=== PATIENT | male | born 1945 | race Caucasian/White ===

== ENCOUNTER 2017-03-15 23:44 | Emergency (ER) | payer MEDICARE, OTHER ==
[~2017-03-15] VITALS: Ht 165.1 cm; Wt 104.5 kg
[~2017-03-15 23:44] MED LIST: ASPI81TA2 PO; AZIL1TAB2 PO; CLOP75TA14 PO; NAPR220C11 PO; NEBI10TA2 PO; NITR0.4T SL; OMEP20TA86 PO; PRAM0.252 PO; PRAS10TA5 PO; PRV40T PO; ZES5 PO
--- NOTE | 2017-03-15 23:46 | ED.REPORT ---
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 Patient was sleeping when his symptoms began and was awoken by the pain. He rates his worst pain as a 5/10. Associated symptoms include SOB. Patient took 2 aspirin and 4 Nitro at home ( 2 years ago) and relieved his pain which is now a 1/10. Nursing Notes Stated Complaint: CHEST PAIN Nursing Notes Reviewed: Yes Allergies: Coded Allergies: No Known Allergies (Unverified Allergy, 06/25/12) Scheduled Aspirin-Expunged Drug, Do Not Renew! (Aspirin-Expunged Drug, Do Not Renew!) 81 Mg Tablet 81 MG PO DAILY Azilsartan Med/Chlorthalidone (Edarbyclor 40-25 Mg Tablet) 1 Each Tablet 1 EACH PO DAILY Clopidogrel-Expunged Drug, Do Not Renew! (Plavix-Expunged Drug, Do Not Renew!) 75 Mg Tablet 75 MG PO DAILY Lisinopril-Expunged Drug, Do Not Renew! (Lisinopril-Expunged Drug, Do Not Renew! ) 5 Mg Tablet 5 MG PO DAILY Naproxen Sod-Expunged Drug, Do Not Renew!! (Aleve-Expunged Drug,Do Not Renew!) 220 Mg Capsule 220 MG PO BID Nebivolol-Expunged Drug, Do Not Renew! (Nebivolol-Expunged Drug, Do Not Renew!) 10 Mg Tablet 10 MG PO HS Nitroglycerin-Expunged Drug, Do Not Renew! (Nitroglycerin SL-Expunged Drug, Do Not Renew!) 0.4 Mg Tab.subl 0.4 MG SL PRN Omeprazole-Expunged Drug, Do Not Renew! (Omeprazole-Expunged Drug, Do Not Renew! ) 20 Mg Tablet.dr 20 MG PO DAILY Pramipexole-Expunged Drug, Do Not Renew! (Mirapex-Expunged Drug, Do Not Renew!) 0.25 Mg Tablet 0.25 MG PO HS Prasugrel-Expunged Drug, Do Not Renew! (Effient-Expunged Drug, Do Not Renew!) 10 Mg Tablet 10 MG PO DAILY Take for 30 days then change to Plavix Pravastatin-Expunged Drug, Do Not Renew! (Pravachol-Expunged Drug, Do Not Renew! ) 40 Mg Tablet 40 MG PO HS General Time Seen by MD: 23:45 Chief Complaint Chest pain Hx Obtained From: Patient Arrived By: Ambulance Sudden in Onset?: Yes Onset Occurred: 1 - 4 hours ago Symptom Duration: Since onset Location: : Chest left: Chest right Quality: Painful Radiation: : Does not radiate Migration/Movement: Reports: None Severity: Current: Pain level 1 out of 10 Severity: Maximum: Pain level 5 out of 10 Associated with: Reports: Shortness of Breath Pertinent Negative: Pt denies other symptoms Recent Healthcare: No recent doctor visit, No recent hospitalization Risk Factors )( CAD Risk Stratification Risk factors reviewed )( TAD Risk Stratification Risk factors reviewed )( PE Risk Stratification Risk factors reviewed Past Medical History Past Medical History DE (2012) Past Surgical History Reports: CABG (2012) Smoking History Unknown if Ever Smoker Social History Other Social History: Good social support, , Local resident Ambulatory Status Independent Review of Systems Respiratory: Reports: Shortness of breath Cardiovascular: Reports: Chest pain Neurologic: Denies: Change LOC Complete sys rev & neg: except as marked. Physical Exam Initial Vital Signs Vital Signs (First) Date Time Temp Pulse Resp B/P Pulse Ox O2 Delivery O2 Flow Rate FiO2 03/15/17 23:55 36.8 89 18 139/57 98 Room Air Initial VS: Reviewed, Vital signs normal Head / Eyes: Atraumatic, Normocephalic, PERRL Skin: Warm, Dry, No cyanosis Neurologic: Alert, Oriented, Nonfocal Psychiatric: Mood/affect normal, Behavior normal, Normal thought content General/Constitutional: Awake, Alert, No acute distress Respiratory / Chest: Atraumatic, Breath sounds NL, Breath sounds = bilat, No respiratory distress Cardiovascular: Heart rate NL, Regular rhythm, Heart sounds NL Abdomen: Atraumatic, Soft, Non-tender Neck: Atraumatic, Supple, No JVD Lower Extremity / Pelvis / MS: Atraumatic, Neurologic intact, Vascular intact, No edema Upper Extremity / MS: Atraumatic, Neurologic intact, Vascular intact, No edema Interpretation & Diagnostics Lab Results Interpretation Result Diagram: 03/15/17 2354 03/15/17 2354 Test 03/15/17 23:54 03/15/17 23:56 03/16/17 03:45 White Blood Count 5.2th/mm3 (3.8-10.1) Red Blood Count 3.20mil/mm3 (4.40-5.80) Hemoglobin 10.1g/dL (13.8-17.2) Hematocrit 30.3% (41.0-50.0) Mean Corpuscular Volume 94.7fL (81-100) Mean Corpuscular Hemoglobin 31.6pg (27.0-35.0) Mean Corpuscular Hemoglobin Concent 33.3% (32.0-37.0) Red Cell Distribution Width 14.4% (12.3-15.4) Platelet Count 210bil/L (150-400) Neutrophils (%) (Auto) 53.4% (40-74) Lymphocytes (%) (Auto) 32.5% (14-46) Monocytes (%) (Auto) 6.2% (4-12) Eosinophils (%) (Auto) 7.5% (0-5) Basophils (%) (Auto) 0.2% (0-3) Sodium Level 141mEq/L (134-144) Potassium Level 3.9mEq/L (3.5-5.2) Chloride Level 101mEq/L (97-108) Carbon Dioxide Level 18mmol/L (18-29) Blood Urea Nitrogen 37mg/dL (8-27) Creatinine 1.04mg/dL (0.76-1.27) Estimat Glomerular Filtration Rate 74mL/min (>59) Glucose Level 148mg/dL (60-99) Calcium Level 10.0mg/dL (8.5-10.1) Magnesium Level 1.7mg/dL (1.6-2.6) Total Bilirubin 0.2mg/dL (0.0-1.2) Aspartate Amino Transf (AST/SGOT) 21U/L (0-50) Alanine Aminotransferase (ALT/SGPT) 20U/L (0-44) Alkaline Phosphatase 65U/L (25-160) Total Protein 7.4g/dL (6.4-8.4) Albumin 4.4g/dL (3.4-5.0) Hold Purple Top Tube Received (Received) Hold Blue Top Tube Received (Received) Hold Red Top Tube Received (Received) Hold [place] Top Tube Received (Received) Troponin T 0.010ug/L (0.0-0.011) Lab Results Interpretation: Mild anemia, mild elevation of nonfasting glucose, troponin negative 2. ECG Interpretation ECG Interpretation: A-fib Rate 86 Anteroseptal infarct; old Abnormal T, consider ischemia, lateral leads Time: 23:59 Interpreted by: ED physician ECG Interpretation: Sinus Rhythm Rate 62 Abnormal T Time: 03:41 Interpreted by: ED physician Re-Eval/Medical Decision Med Decision/Clinical Course 71-year-old male who presents with chest discomfort. He does have a history of coronary artery disease. This pain has resolved. EKG in troponin negative 2. Angina as a cause the pain has not been ruled out but there does not to be appear to be in acute coronary syndrome at this time. He will follow-up with his primary doctor for further outpatient cardiac evaluation. Time of Eval: 04:00 Patient Status: Condition improved Re-Evaluation/Progress Note: Patient is informed of the plan to repeat Troponin. Family is informed of his results. Time of Eval: 04:57 Patient Status: Condition improved Re-Evaluation/Progress Note: Patient is rechecked. All of the patient's questions are addressed. He understands and agrees with the treatment plan. Counseled Regarding: Diagnosis, Lab results, Need for follow-up, When/why to return to ED Discharge & Departure Primary Impression: Chest pain with low risk of acute coronary syndrome Disposition: Home Discharge Condition All VS Reviewed: Yes Condition: Stable Patient Instructions: Chest Pain (ED) Additional Instructions: Your labs are all normal including troponin 2. EKG is normal 2. Chest x-ray is normal. I see no evidence of serious heart or lung disease. The pain seems to come from inflammation of the joints of your chest. Ibuprofen 600 mg 3 or 4 times daily would be the best treatment. Follow-up with your regular doctor if you have persistent symptoms. Call me at [phone] between the hours of 9 PM and 6 AM if you have any questions or concern for the next few days. Referrals: Sergio Ryan MD (PCP) Scribe Attestation Portions of this note were transcribed by Lee Almanza. I, Dr. Jenkins personally performed the history, physical exam and medical decision-making; I reviewed and confirmed the accuracy of the information in the transcribed note. Signed by: Kiki Jaffe, 03/16/17 0458. copies to: Sergio Ryan MD, Howard L MD March 15, 2017 23:46 LEE ALMANZA March 15, 2017 23:54
[2017-03-15 23:55] VITALS: BP 139/57; PULSE 89; RESP 18; O2SAT 98
[2017-03-16 00:01] LABS: BASOPHILS % (AUTO) 0.2 % (0-3); EOSINOPHILS % (AUTO) 7.5 % (0-5); MONOCYTES % (AUTO) 6.2 % (4-12); Mean Corpuscular Hemoglobin 31.6 pg (27.0-35.0); Mean Corpuscular Volume 94.7 fL (81-100); NEUTROPHILS % (AUTO) 53.4 % (40-74); Platelet Count 210 bil/L (150-400)
[2017-03-16 00:27] LABS: TROPONIN T 0.01 ug/L (0.0-0.011)
[2017-03-16 00:30] VITALS: BP 142/48; PULSE 91; RESP 18; O2SAT 97
[2017-03-16 00:37] LABS: Magnesium 1.7 mg/dL (1.6-2.6)
[2017-03-16 02:30] VITALS: BP 131/44; PULSE 94; RESP 20; O2SAT 98
[2017-03-16 04:15] VITALS: BP 143/56; PULSE 66; RESP 20; O2SAT 97
[2017-03-16 05:05] VITALS: BP 143/51; PULSE 75; RESP 18; O2SAT 96
--- NOTE | 2017-03-16 07:30 | DRSVH ---
PROCEDURE: X-RAY CHEST ONE VIEW, PORTABLE ([id number]) INDICATIONS: cp TECHNIQUE: One view of the chest was acquired. COMPARISON: None. FINDINGS: Surgical changes and devices: Patient is status post median sternotomy. A cardiac recording device is projected over the left hemithorax. Lungs and pleura: Lung volumes are low. Lungs are clear. No pleural effusion or pneumothorax. Mediastinum: Mediastinal contours appear normal. Heart size is normal. Bones and chest wall: No suspicious bony lesions. Overlying soft tissues appear unremarkable. IMPRESSION: Low lung volumes. No acute cardiopulmonary findings. Dictated by: Julianne Segundo M.D. on 03/16/2017 at 7:28 Approved by: Julianne Segundo M.D. on 03/16/2017 at 7:29
== END 2017-03-16 05:07 | disposition home or self-care (01) ==
LOC: SED 23:44
DX: R07.89 Other chest pain (principal); R06.02 Shortness of breath; I25.2 Old myocardial infarction; I25.10 Atherosclerotic heart disease of native coronary artery without angina pectoris; Z95.1 Presence of aortocoronary bypass graft
CPT/HCPCS: 0296T; 36415; 71010; 80053; 83735; 84484; 85025; 93005; 99285